=== PATIENT | male | born 1990 | race Hispanic/Latino ===

== ENCOUNTER 2022-04-06 15:22 | Emergency (ER) | payer SELFPAY ==
[2022-04-06] VITALS (8 sets, daily range): BP systolic 130–141; BP diastolic 68–80; PULSE 80–100; RESP 16–24; TEMP 36.9; O2SAT 95–100; BMI 32.1
[2022-04-06 15:53] LABS: Add Manual Diff / Slide Review NO; Basophils Absolute Auto 0 /uL (0-100); Basophils Percent Auto 0.2 % (0-2); Eosinophils Absolute Auto 100 /uL (0-450); Hematocrit 45.8 % (41-53); Hemoglobin 15.8 g/dL (13.5-17.5); Lymphocytes Absolute Auto 700 /uL (1100-4500); Lymphocytes Percent Auto 5.4 % (25-40); Mean Corpuscular HGB Conc 34.5 % (30-36); Mean Corpuscular Hemoglobin 29.8 PG (26-34); Mean Corpuscular Volume 86.5 fL (80-100); Monocytes Absolute Auto 500 /uL (0-900); Neutrophils Absolute Auto 11800 /uL (1500-7000); Neutrophils Percent Auto 89.4 % (50-75); Platelet Count 213 X10^3/uL (150-400); Red Cell Distribution Width 13.2 % (11.6-14.8); White Blood Cell Count 13.2 X10^3/uL (4.5-11.0)
[2022-04-06 15:57] LABS: Alanine Aminotransferase 100 IU/L (<50); Albumin 4.8 g/dL (3.5-5.0); Albumin Globulin Ratio 1.3 (1.0-2.8); Alkaline Phosphatase 99 U/L (38-126); Aspartate Aminotransferase 60 IU/L (17-59); BUN Creatinine Ratio 21.9 (6-22); Bilirubin Total 0.7 mg/dL (0.2-1.3); Blood Urea Nitrogen 16 mg/dL (9-20); Carbon Dioxide 23 mmol/L (22-32); Chloride 109 mmol/L (98-107); Estimated Glomerular Filt Rate > 60 mL/min (>60); Globulin 3.6 g/dL (1.7-4.1); Glucose 107 mg/dL (70-100); HEMOLYSIS < 15 (0-50); Lipase 78 U/L (23-300); Potassium 4.2 mmol/L (3.4-5.1); Sodium 139 mmol/L (137-145); Total Protein 8.4 g/dL (6.3-8.2)
[2022-04-06 16:09] LABS: Bacteria Urine None Seen; Culture Indicated Urine Cult Not Indicated; RBC Urine 0-1/HPF (0-5/HPF); Squamous Epithelial Cell Urine 0-1 /HPF (0-5/HPF); WBC Urine None Seen (0-5/HPF)
[2022-04-06] MEDS: ONDANSETRON 4 MG/2 ML INJ IV (17:35)
[2022-04-06] MEDS: KETOROLAC 30 MG/ML VIAL 15 MG IV (17:35)
--- NOTE | 2022-04-06 18:35 | DI.US.S_ITS ---
PROCEDURE: US ABDOMEN LIMITED INDICATIONS: RUQ PAIN TECHNIQUE: Real-time focused scanning was performed of the abdomen, with image documentation. COMPARISON: [facility], CT, CT KIDNEY URETER BLADDER (KUB), 04/06/2022, 18:42. FINDINGS: The liver is normal in size and appears increased in echogenicity compatible with fatty infiltration. Gallbladder demonstrates no stones, wall thickening, or pericholecystic fluid. No intra or extrahepatic biliary ductal dilatation. The visualized common bile duct measures up to 0.5 cm. The visualized pancreas appears unremarkable sonographically. Pancreatic tail is not well seen. IMPRESSION: 1. No evidence of cholelithiasis or cholecystitis. 2. No biliary ductal dilatation. 3. Increased hepatic echogenicity suggestive of steatosis. Dictated by: Wesley Deleon M.D. on 04/06/2022 at 21:46 Approved by: Wesley Deleon M.D. on 04/06/2022 at 21:47
--- NOTE | 2022-04-06 18:36 | DI.CT.S_ITS ---
PROCEDURE: CT KIDNEY URETER BLADDER (KUB) INDICATIONS: ?kidney stones TECHNIQUE: Axial sections were acquired from the lung bases to the pubic symphysis. Coronal and sagittal reformats were performed. For radiation dose reduction, the following was used: automated exposure control, adjustment of mA and/or kV according to patient size. COMPARISON: None. FINDINGS: Image quality: Excellent. Lung bases: Unremarkable. Heart: No significant findings. URINARY: Right Kidney: Hazy increased density appearance of the renal parenchyma. Right Ureter: No hydroureter. Left Kidney: Hazy increased density appearance of the renal parenchyma. Left Ureter: No hydroureter. Bladder: Normal wall thickness. No stones. ABDOMEN: Liver: Liver is enlarged measuring 18.3 cm with steatosis. Gallbladder: Unremarkable. Biliary ducts: Unremarkable. Pancreas: Unremarkable. Spleen: Unremarkable. Adrenal Glands: Unremarkable. Stomach and Bowel: Stomach, small bowel loops, and colon are nonobstructive. Colonic diverticula are present without inflammatory change. Appendix is normal with appendicoliths. Peritoneum: No abnormal intraperitoneal fluid. No free air. Ventral Wall: Fat containing ventral hernia is present. Abdominal Nodes: No enlarged retroperitoneal or mesenteric lymph nodes. Vessels: Aorta and inferior vena cava are normal in size. PELVIS: Pelvic Organs: Unremarkable. Pelvic Nodes: Unremarkable. Miscellaneous: No inguinal hernias are seen. Bones: Unremarkable. IMPRESSION: Hazy increased density of the renal parenchyma bilaterally suggestive of calcinosis. No obstruction. No bladder or ureteral calculi. Diverticulosis. Dictated by: Stephanie Vallejo M.D. on 04/06/2022 at 19:01 Approved by: Stephanie Vallejo M.D. on 04/06/2022 at 19:05
--- NOTE | 2022-04-06 19:06 | ED.NAVMDI ---
HPI - Nausea/Vomiting/Diarrhea <Inez Pepper PA-C - Last Filed: 04/06/22 21:45> General Chief complaint: Nausea/Vomiting/Diarrhea Stated complaint: THROWING UP DIZZY DIARRHEA Time Seen by Provider: 04/06/22 15:36 Source: patient Mode of arrival: Ambulatory History of Present Illness HPI Narrative: Male with past medical history nephrolithiasis presents to the ED with 1 day of nausea, vomiting, diarrhea, abdominal pain. Patient states that he has been intractably vomiting today along with abdominal cramping. Pain is mostly localized to the upper quadrant, wrapping around to his flanks. Patient does endorse that he has had right upper quadrant pain intermittently over the last several weeks, and is concerned about gallstones. Patient's kids both had similar symptoms 2 days ago with nausea, vomiting and diarrhea. Patient denies fever, chills, chest pain, shortness of breath, dysuria, lightheadedness, dizziness, syncope. Related Data Allergies Allergy/AdvReac Type Severity Reaction Status Date / Time No Known Drug Allergies Allergy Verified 04/06/22 15:49 Review of Systems <Inez Pepper PA-C - Last Filed: 04/06/22 21:45> Review of Systems ROS Unobtainable: All systems reviewed & are unremarkable except as noted in HPI and below Constitutional Constitutional: Denies chills, Denies fatigue, Denies fever(s), Denies frequent falls, Denies lethargy and Denies weakness Eyes Eyes: Denies change in vision, Denies eye discharge, Denies irritation and Denies loss of vision ENT Ears, Nose, Mouth, and Throat: Denies change in voice, Denies dizziness, Denies neck pain, Denies sore throat and Denies throat swelling Cardiovascular Cardiovascular: Denies chest pain, Denies irregular heart rhythm, Denies lightheadedness, Denies palpitations, Denies dyspnea, Denies dyspnea on exertion and Denies orthopnea Respiratory Respiratory: Denies cough, Denies dyspnea, Denies dyspnea on exertion and Denies wheezing Gastrointestinal Gastrointestinal: Reports abdominal pain, Denies change in bowel habits, Reports diarrhea, Reports nausea and Reports vomiting Genitourinary Genitourinary: Denies hematuria, Denies flank pain, Denies urinary incontinence and Denies urinary urgency Musculoskeletal Musculoskeletal: Denies back pain, Denies muscle weakness, Denies neck pain, Denies numbness and Denies tingling Integumentary/Breasts Skin/Breast: Denies pruritus, Denies erythema, Denies rash and Denies wounds Neurologic Neurologic: Denies behavioral changes, Denies confusion, Denies dizziness, Denies frequent falls, Denies loss of vision, Denies numbness, Denies tingling and Denies weakness Psychiatric Psychiatric: Denies anxiety, Denies behavioral changes, Denies confusion, Denies depression, Denies homicidal ideation and Denies suicidal ideation Endocrine Endocrine: Denies fatigue, Denies flushing and Denies palpitations Hematologic/Lymphatic Hematologic/Lymphatic: Denies easy bruising Allergic/Immunologic Allergic/Immunologic: Denies urticaria, Denies throat swelling and Denies wheezing Patient History <Inez Pepper PA-C - Last Filed: 04/06/22 21:45> Social History Smoking Status: Never smoker Smoking Status: Never smoker alcohol intake frequency: 0-2 drinks per day Substance Use Type: marijuana Exam <Inez Pepper PA-C - Last Filed: 04/06/22 21:45> Initial Vital Signs Initial Vital Signs: Vital Signs Temperature 98.4 F 04/06/22 15:30 Pulse Rate 83 04/06/22 15:30 Respiratory Rate 24 04/06/22 15:30 Blood Pressure 134/80 04/06/22 15:30 Pulse Oximetry 96 04/06/22 15:30 Const General: cooperative, healthy appearing and comfortable HENMT Head: normal to inspection Eyes General: Yes appearance normal, both eyes and all related structures Resp Effort & Inspection: normal respiratory effort Auscultation: clear to auscultation bilaterally Cardio Rate: regular rate Rhythm: regular rhythm GI Other: Abdomen is soft, nondistended. Tender to palpation in the right upper quadrant. No CVA tenderness. General: No CVA tenderness Back/Spine/Pelvis Back: normal to inspection Skin General: no rashes or lesions noted Neuro General: patient alert, patient awake and patient oriented x3 Psych Appearance: grossly normal Mental Status: mental status grossly normal <Les Vera MD - Last Filed: 04/06/22 22:37> Initial Vital Signs Initial Vital Signs: Vital Signs Temperature 98.4 F 04/06/22 15:30 Pulse Rate 83 04/06/22 15:30 Respiratory Rate 24 04/06/22 15:30 Blood Pressure 134/80 04/06/22 15:30 Pulse Oximetry 96 04/06/22 15:30 Course <Inez Pepper PA-C - Last Filed: 04/06/22 21:45> Orders Ordered: ED Orders 04/06/22 15:38 Complete Blood Count AUTO DIFF Stat Comprehensive Metabolic Panel Stat Lipase Stat 04/06/22 15:55 Urine Microscopic Stat 04/06/22 18:35 US abdomen limited Stat 04/06/22 18:36 CT kidney ureter bladder (KUB) Stat Discontinued Medications Ketorolac Tromethamine (Ketorolac 30 Mg/Ml Vial) 15 mg IV NOW ONE Stop: 04/06/22 17:27 Last Admin: 04/06/22 17:35 Dose: 15 mg Documented by: OLIMPIA Ondansetron HCl (Ondansetron 4 Mg/2 Ml Inj) 4 mg IV NOW ONE Stop: 04/06/22 17:27 Last Admin: 04/06/22 17:35 Dose: 4 mg Documented by: OLIMPIA Ondansetron HCl (Ondansetron 4 Mg Odt Prepack) 1 bottle MISC SEEINSTR ONE Stop: 04/06/22 22:03 Last Admin: 04/06/22 22:07 Dose: 1 bottle Documented by: DONNA Vital Signs Vital signs: Vital Signs - 8 hr 04/06/22 15:30 04/06/22 16:36 04/06/22 16:37 Temperature 98.4 F Pulse Rate 83 89 88 Respiratory Rate 24 Blood Pressure 134/80 141/76 H Pulse Oximetry 96 98 98 04/06/22 17:00 04/06/22 17:01 04/06/22 17:30 Temperature Pulse Rate 91 H 85 100 H Respiratory Rate Blood Pressure 131/68 141/73 H Pulse Oximetry 97 96 97 04/06/22 18:00 04/06/22 22:10 Temperature Pulse Rate 80 82 Respiratory Rate 16 Blood Pressure 132/75 130/74 Pulse Oximetry 95 100 <Les Vera MD - Last Filed: 04/06/22 22:37> Orders Ordered: ED Orders 04/06/22 15:38 Complete Blood Count AUTO DIFF Stat Comprehensive Metabolic Panel Stat Lipase Stat 04/06/22 15:55 Urine Microscopic Stat 04/06/22 18:35 US abdomen limited Stat 04/06/22 18:36 CT kidney ureter bladder (KUB) Stat Discontinued Medications Ketorolac Tromethamine (Ketorolac 30 Mg/Ml Vial) 15 mg IV NOW ONE Stop: 04/06/22 17:27 Last Admin: 04/06/22 17:35 Dose: 15 mg Documented by: LOIMPIA Ondansetron HCl (Ondansetron 4 Mg/2 Ml Inj) 4 mg IV NOW ONE Stop: 04/06/22 17:27 Last Admin: 04/06/22 17:35 Dose: 4 mg Documented by: OLIMPIA Ondansetron HCl (Ondansetron 4 Mg Odt Prepack) 1 bottle MISC SEEINSTR ONE Stop: 04/06/22 22:03 Last Admin: 04/06/22 22:07 Dose: 1 bottle Documented by: DONNA Vital Signs Vital signs: Vital Signs - 8 hr 04/06/22 15:30 04/06/22 16:36 04/06/22 16:37 Temperature 98.4 F Pulse Rate 83 89 88 Respiratory Rate 24 Blood Pressure 134/80 141/76 H Pulse Oximetry 96 98 98 04/06/22 17:00 04/06/22 17:01 04/06/22 17:30 Temperature Pulse Rate 91 H 85 100 H Respiratory Rate Blood Pressure 131/68 141/73 H Pulse Oximetry 97 96 97 04/06/22 18:00 04/06/22 22:10 Temperature Pulse Rate 80 82 Respiratory Rate 16 Blood Pressure 132/75 130/74 Pulse Oximetry 95 100 MDM - Nausea/Vomiting/Diarrhea <Inez Pepper PA-C - Last Filed: 04/06/22 21:45> Medical Records Attestation: I reviewed the patient's medical records. Lab Data Attestation: I reviewed the patient's lab results. Lab results narrative: Labs within normal limits, UA negative for UTI. Result diagrams: 04/06/22 15:38 04/06/22 15:38 Labs: Lab Results 04/06/22 04/06/22 04/06/22 Range/Units 15:38 15:38 15:55 WBC 13.2 H (4.5-11.0) X10^3/uL RBC 5.30 (4.5-5.9) X10^6/uL Hgb 15.8 (13.5-17.5) g/dL Hct 45.8 (41-53) % MCV 86.5 (80-100) fL MCH 29.8 (26-34) PG MCHC 34.5 (30-36) % RDW 13.2 (11.6-14.8) % Plt Count 213 (150-400) X10^3/uL Neut % (Auto) 89.4 H (50-75) % Lymph % (Auto) 5.4 L (25-40) % Patrick % (Auto) 4.0 (3-14) % Eos % (Auto) 1.0 L (2-4) % Baso % (Auto) 0.2 (0-2) % Neut # (Auto) 77006 H (3045-0035) /uL Lymph # (Auto) 700 L (1674-2181) /uL Patrick # (Auto) 500 (0-900) /uL Eos # (Auto) 100 (0-450) /uL Baso # (Auto) 0 (0-100) /uL Sodium 139 (137-145) mmol/L Potassium 4.2 (3.4-5.1) mmol/L Chloride 109 H (98-107) mmol/L Carbon Dioxide 23 (22-32) mmol/L BUN 16 (9-20) mg/dL Creatinine 0.73 (0.66-1.25) mg/dL Estimated GFR > 60 (>60) mL/min BUN/Creatinine Ratio 21.9 (6-22) Glucose 107 H (70-100) mg/dL Calcium 9.0 (8.4-10.2) mg/dL Total Bilirubin 0.7 (0.2-1.3) mg/dL AST 60 H (17-59) IU/L ALT 100 H (<50) IU/L Alkaline Phosphatase 99 (38-126) U/L Total Protein 8.4 H (6.3-8.2) g/dL Albumin 4.8 (3.5-5.0) g/dL Globulin 3.6 (1.7-4.1) g/dL Albumin/Globulin Ratio 1.3 (1.0-2.8) Lipase 78 (23-300) U/L Urine RBC 0-1/hpf (0-5/HPF) Urine WBC None seen (0-5/HPF) Ur Squamous Epith Cells 0-1 /hpf (0-5/HPF) Urine Bacteria None seen (None) Ur Culture Indicated? Cult not indicated Urine Dip Bedside Urine Glucose Negative Bedside Urine Bilirubin - Negative Bedside Urine Ketone - Negative Urine Specific [place] 1.02 Bedside Urine Occult Blood +/- Bedside Urine pH 6 Bedside Urine Protein - Negative Bedside Urine Urobilinogen - Negative Bedside Urine Nitrite - Negative Bedside Urine Leukocytes - Negative Esterase Imaging Data CT scan - abdomen/pelvis: Radiologist's Impression: PROCEDURE:? CT KIDNEY URETER BLADDER (KUB) ? INDICATIONS:? ?kidney stones ? TECHNIQUE:? Axial sections were acquired from the lung bases to the pubic symphysis.? Coronal and sagittal reformats were performed.? For radiation dose reduction, the following was used: ?automated exposure control, adjustment of mA and/or kV according to patient size.? ? COMPARISON:? None. ? FINDINGS:? Image quality:? Excellent.? ? Lung bases:? Unremarkable.? ? Heart:? No significant findings. ? URINARY: Right Kidney:? Hazy increased density appearance of the renal parenchyma.? Right Ureter:? No hydroureter.? ? Left Kidney:? Hazy increased density appearance of the renal parenchyma.? Left Ureter:? No hydroureter.? ? Bladder:? Normal wall thickness. No stones. ? ? ? ABDOMEN: Liver:? Liver is enlarged measuring 18.3 cm with steatosis. Gallbladder:? Unremarkable.? ? Biliary ducts:? Unremarkable.? ? Pancreas:? Unremarkable.? ? Spleen:? Unremarkable.? ? Adrenal Glands:? Unremarkable.? ? ? Stomach and Bowel:? Stomach, small bowel loops, and colon are nonobstructive.? Colonic diverticula are present without inflammatory change.? Appendix is normal with appendicoliths. Peritoneum:? No abnormal intraperitoneal fluid.? No free air.? ? Ventral Wall: ? Fat containing ventral hernia is present. Abdominal Nodes:? No enlarged retroperitoneal or mesenteric lymph nodes.? Vessels:? Aorta and inferior vena cava are normal in size.? ? PELVIS: Pelvic Organs:? Unremarkable.? ? Pelvic Nodes: Unremarkable. Miscellaneous: No inguinal hernias are seen. ? ? ? Bones:? Unremarkable. ? IMPRESSION:? ? Hazy increased density of the renal parenchyma bilaterally suggestive of calcinosis.? No obstruction. ? No bladder or ureteral calculi. ? Diverticulosis. ? ? ? Dictated by: Stephanie Vallejo M.D. on 04/06/2022 at 19:01 ? ? Approved by: Stephanie Vallejo M.D. on 04/06/2022 at 19:05 ? [facility] Narrative Medical decision making narrative: 33 year old male with past medical history nephrolithiasis presents to the ED with 1 day of nausea, vomiting, diarrhea, abdominal pain. Concern for gastroenteritis versus nephrolithiasis versus cholecystitis versus gastritis versus pancreatitis. Will order labs, lipase, UA, CT abdomen pelvis, ultrasound abdomen. Will treat symptoms with Zofran, ketorolac. Will reassess. Labs within normal limits, UA without UTI. CT abdomen pelvis without acute findings. Patient's symptoms improved with Zofran and ketorolac. Awaiting ultrasound results. Anticipate discharge. Signing out to Dr. Vera. <Les Vera MD - Last Filed: 04/06/22 22:37> Lab Data Labs: Lab Results 04/06/22 04/06/22 04/06/22 Range/Units 15:38 15:38 15:55 WBC 13.2 H (4.5-11.0) X10^3/uL RBC 5.30 (4.5-5.9) X10^6/uL Hgb 15.8 (13.5-17.5) g/dL Hct 45.8 (41-53) % MCV 86.5 (80-100) fL MCH 29.8 (26-34) PG MCHC 34.5 (30-36) % RDW 13.2 (11.6-14.8) % Plt Count 213 (150-400) X10^3/uL Neut % (Auto) 89.4 H (50-75) % Lymph % (Auto) 5.4 L (25-40) % Patrick % (Auto) 4.0 (3-14) % Eos % (Auto) 1.0 L (2-4) % Baso % (Auto) 0.2 (0-2) % Neut # (Auto) 77393 H (7265-5370) /uL Lymph # (Auto) 700 L (7390-4135) /uL Patrick # (Auto) 500 (0-900) /uL Eos # (Auto) 100 (0-450) /uL Baso # (Auto) 0 (0-100) /uL Sodium 139 (137-145) mmol/L Potassium 4.2 (3.4-5.1) mmol/L Chloride 109 H (98-107) mmol/L Carbon Dioxide 23 (22-32) mmol/L BUN 16 (9-20) mg/dL Creatinine 0.73 (0.66-1.25) mg/dL Estimated GFR > 60 (>60) mL/min BUN/Creatinine Ratio 21.9 (6-22) Glucose 107 H (70-100) mg/dL Calcium 9.0 (8.4-10.2) mg/dL Total Bilirubin 0.7 (0.2-1.3) mg/dL AST 60 H (17-59) IU/L ALT 100 H (<50) IU/L Alkaline Phosphatase 99 (38-126) U/L Total Protein 8.4 H (6.3-8.2) g/dL Albumin 4.8 (3.5-5.0) g/dL Globulin 3.6 (1.7-4.1) g/dL Albumin/Globulin Ratio 1.3 (1.0-2.8) Lipase 78 (23-300) U/L Urine RBC 0-1/hpf (0-5/HPF) Urine WBC None seen (0-5/HPF) Ur Squamous Epith Cells 0-1 /hpf (0-5/HPF) Urine Bacteria None seen (None) Ur Culture Indicated? Cult not indicated Urine Dip Bedside Urine Glucose Negative Bedside Urine Bilirubin - Negative Bedside Urine Ketone - Negative Urine Specific [place] 1.02 Bedside Urine Occult Blood +/- Bedside Urine pH 6 Bedside Urine Protein - Negative Bedside Urine Urobilinogen - Negative Bedside Urine Nitrite - Negative Bedside Urine Leukocytes - Negative Esterase MDM Narrative Medical decision making narrative: 33 year old male with past medical history nephrolithiasis presents to the ED with 1 day of nausea, vomiting, diarrhea, abdominal pain. Concern for gastroenteritis versus nephrolithiasis versus cholecystitis versus gastritis versus pancreatitis. Will order labs, lipase, UA, CT abdomen pelvis, ultrasound abdomen. Will treat symptoms with Zofran, ketorolac. Will reassess. Labs within normal limits, UA without UTI. CT abdomen pelvis without acute findings. Patient's symptoms improved with Zofran and ketorolac. Awaiting ultrasound results. Anticipate discharge. Signing out to Dr. Vera. The case was reviewed with MIRANDA Huber at the end of her shift. Labs and CT were normal. Ultrasound was pending. Ultrasound shows no evidence of cholecystitis. The patient is feeling quite better. He is hungry. I did give him a dispense pack of Zofran ODT prior to discharge. -Erick PELLETIER 04/06/22@22:10. Discharge Plan Departure Patient Disposition: Home Clinical Impression: Gastroenteritis Instructions: DI for Bacterial Gastroenteritis -- Adult Activity Restrictions/Additional Instructions: Were evaluated in the ED today for abdominal pain, nausea vomiting, diarrhea. Your labs, urine were normal. Your CT abdomen pelvis and ultrasound were normal. Your symptoms were well controlled with medications. Continue to stay hydrated. You may eat a BRAT diet that consists of bread, rice, apples, toast to help with the diarrhea. Return to the ED if you continue to vomit uncontrollably, your unable to keep down fluids, abdominal pain worsens, you experience chest pain, shortness of breath.
[2022-04-06] MEDS: ONDANSETRON 4 MG ODT PREPACK 1 BOTTLE MISC (22:07)
== END 2022-04-06 22:12 | disposition home or self-care (01) ==
PROVIDERS: Emergency Provider Student in an Organized Health Care Education/Training Program
DX: K52.9 Noninfective gastroenteritis and colitis, unspecified (principal); R11.2 Nausea with vomiting, unspecified; R10.11 Right upper quadrant pain
CPT/HCPCS: 36415; 74176; 76705; 80053; 81003; 81015; 83690; 85025; 96374; 96375; 99284; J1885; J2405